=== PATIENT | male | born 1995 | race Caucasian/White ===

== ENCOUNTER 2016-08-16 02:31 | Emergency (ER) | payer SELFPAY ==
[2016-08-16 02:41] VITALS: PULSE 89; RESP 16; TEMP 98; O2SAT 98
[2016-08-16] MEDS ORDERED: TDAP Vaccine 0.5 mL Syr IM ONE (02:56)
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
[2016-08-16 04:05] VITALS: BP 132/72
== END 2016-08-16 04:27 | disposition home or self-care (01) ==
LOC: H.ER 02:31
DX: H92.02 Otalgia, left ear (principal); S09.90XA Unspecified injury of head, initial encounter; S01.312A Laceration without foreign body of left ear, initial encounter; Y04.8XXA Assault by other bodily force, initial encounter; Y93.9 Activity, unspecified